=== PATIENT | female | born 1985 | race Caucasian/White ===

== ENCOUNTER 2016-06-28 16:05 | Observation (INO) | payer OTHER ==
[~2016-06-28] VITALS: Ht 154.9 cm; Wt 79.4 kg
[2016-06-28 16:13] VITALS: BP 143/97
[2016-06-28 16:45] VITALS: BP 134/94
[2016-06-28] MEDS ORDERED: BETAMETHASONE ACE/NA PHOS 6 MG/ML (CELESTONE SOLUSPAN) ONE (17:22)
[2016-06-28 17:25] LABS: ALANINE AMINOTRANSFERASE 33 U/L (0-55); ALBUMIN 3.3 G/DL (3.2-4.5); ANION GAP 11 MMOL/L (5-14); ASPARTATE AMINO TRANSFERASE 33 U/L (5-34); BILIRUBIN,TOTAL 0.5 MG/DL (0.1-1.0); BLOOD UREA NITROGEN 9 MG/DL (7-18); BUN/CREATININE RATIO 15; CALCIUM 8.9 MG/DL (8.5-10.1); CARBON DIOXIDE 18 MMOL/L (21-32); CHLORIDE 107 MMOL/L (98-107); CREATININE SERUM 0.59 MG/DL (0.60-1.30); GFR ESTIMATED > 60; GLUCOSE 77 MG/DL (70-105); LACTATE DEHYDROGENASE 122 U/L (125-220); POTASSIUM 3.9 MMOL/L (3.6-5.0); SODIUM 136 MMOL/L (135-145); TOTAL PROTEIN 6.1 G/DL (6.4-8.2); URIC ACID 5.2 MG/DL (2.6-7.2)
[2016-06-28] MEDS: BETAMETHASONE ACE/NA PHOS 6 MG/ML (CELESTONE SOLUSPAN) IM SCH (17:39)
[2016-06-28 17:45] VITALS: BP 131/85
[2016-06-28 17:55] LABS: BILIRUBIN,URINE NEGATIVE (NEGATIVE); KETONES,URINE 1+ (NEGATIVE); LEUKOCYTE ESTERASE ,URINE NEGATIVE (NEGATIVE); NITRITE,URINE NEGATIVE (NEGATIVE); PH,URINE 6.5 (5-9); PROTEIN,URINE 1+ (NEGATIVE); UROBILINOGEN,URINE NORMAL (NORMAL)
[2016-06-28 18:06] LABS: WBC,URINE RARE /HPF
[2016-06-28 18:14] VITALS: BP 131/85
--- NOTE | 2016-06-28 18:22 | Diagnostic Imaging Report ---
INDICATION: Hypertension, uterine fibroids. COMPARISON: None available. TECHNIQUE: Third trimester OB ultrasound was performed on June 28, 2016. FINDINGS: A single live intrauterine gestation is identified. The fetus is in a cephalic presentation. Amniotic fluid index is within normal limits at 17.3 cm with the largest single pocket measuring 5.4 cm. No evidence of placenta previa. heart tones are present at 127 beats per minute. The cervix measures 3.8 cm. No significant fluid undermining the gestational sac and placenta. Two rounded hypoechoic masses are identified within the anterior aspect of the uterus. The largest measures 5.8 x 3.5 x 5.2 cm, while the other measures 3.1 x 2.2 x 2.5 cm. These appear ovoid and mildly hypoechoic and are not hypervascular. biometrics are symmetric, consistent with an estimated gestational age of 32 weeks and 1 day. Therefore, there is an estimated due date based upon this examination of August 22, 2016. IMPRESSION: Single live intrauterine gestation in a cephalic presentation and estimated gestational age of 32 weeks and 1 day. Therefore, there is an estimated due date based upon this examination of August 22, 2016. Findings are consistent with clinical dating. A full anatomic survey was not performed on this examination. Two ovoid hypoechoic masses within the anterior aspect of the uterus, felt to relate to uterine fibroids. Focal contraction is felt less likely. Dictated by: Dictated on workstation # [id number]
[2016-06-28 19:55] VITALS: BP 135/94
[2016-06-29] VITALS (9 sets, daily range): BP systolic 125–150; BP diastolic 80–101
[2016-06-29] MEDS ORDERED: PNV11TAB5 PO (09:31)
[2016-06-29] MEDS ORDERED: Iron PO (09:31)
[2016-06-29] MEDS ORDERED: CALC600T12 PO (09:31)
--- NOTE | 2016-06-29 11:52 | Progress Note-Standard ---
Standard Progress Note Progress Notes/Assess & Plan Progress/Assessment & Plan This patient was admitted by my partners Dr. Bran and Dr. Chan yesterday from the office after having elevations in BP, and concerns for PreE. Today this morning the patient's BP is much improved. She denies contractions, vb, lof. +FM noted by the patient. She is due for a second dose of BMZ today, and is completing a 24 hr urine protien. Vital Sign - Last 24 Hours 06/28/16 06/28/16 06/28/16 06/28/16 16:13 16:45 17:45 18:14 Temp 98.5 Pulse 102 104 93 93 Resp 18 18 18 18 B/P 143/97 134/94 131/85 131/85 Pulse Ox 97 O2 Delivery Room Air Room Air Room Air 06/28/16 06/29/16 06/29/16 06/29/16 19:55 00:35 04:30 08:20 Temp 98.0 98.0 98.2 98.0 Pulse 101 100 106 135 Resp 18 18 18 14 B/P 135/94 125/81 125/80 136/94 Pulse Ox 95 96 100 O2 Delivery Room Air Room Air Room Air Intake and Output 06/28/16 06/28/16 06/29/16 15:00 23:00 07:00 Intake Total 1300 ml Output Total 1400 ml Balance -100 ml Laboratory Tests Test 06/28/16 16:10 06/28/16 16:58 Range/Units Urine Bacteria FEW H /HPF Urine Bilirubin NEGATIVE NEGATIVE Urine Casts NONE /LPF Urine Clarity SLIGHTLY CLOUDY Urine Color YELLOW Urine Crystals NONE /LPF Urine Culture Indicated NO Urine Glucose (UA) NEGATIVE NEGATIVE Urine Ketones 1+ H NEGATIVE Urine Leukocyte Esterase NEGATIVE NEGATIVE Urine Mucus NEGATIVE /LPF Urine Nitrite NEGATIVE NEGATIVE Urine Protein 1+ H NEGATIVE Urine RBC NONE /HPF Urine RBC (Auto) NEGATIVE NEGATIVE Urine Specific [place] 1.010 L 1.016-1.022 Urine Squamous Epithelial Cells 5-10 /HPF Urine Urobilinogen NORMAL NORMAL MG/DL Urine WBC RARE /HPF Urine pH 6.5 5-9 Alanine Aminotransferase (ALT/SGPT) 33 0-55 U/L Albumin 3.3 3.2-4.5 G/DL Alkaline Phosphatase 114 40-136 U/L Anion Gap 11 5-14 MMOL/L Aspartate Amino Transf (AST/SGOT) 33 5-34 U/L BUN/Creatinine Ratio 15 Blood Urea Nitrogen 9 7-18 MG/DL Calcium Level 8.9 8.5-10.1 MG/DL Carbon Dioxide Level 18 L 21-32 MMOL/L Chloride Level 107 98-107 MMOL/L Creatinine 0.59 L 0.60-1.30 MG/DL Estimat Glomerular Filtration Rate > 60 Glucose Level 77 70-105 MG/DL Lactate Dehydrogenase 122 L 125-220 U/L Potassium Level 3.9 3.6-5.0 MMOL/L Sodium Level 136 135-145 MMOL/L Total Bilirubin 0.5 0.1-1.0 MG/DL Total Protein 6.1 L 6.4-8.2 G/DL Uric Acid 5.2 2.6-7.2 MG/DL NST: reactive BL 140 moderate variability + accels no decels, Uterine irritability noted on TOCO. Diagnosis: GHTN- improved Uterine contractions- patient not aware of these P: Complete 24 hr urine today BMZ at 24 hrs DC later today if continues to have normal BP. ANDRE OLIVER DO Jun 29, 2016 11:52 am
[2016-06-29] MEDS ORDERED: NIFEdipine ER 60 MG (PROCARDIA XL) TAB PO ONE (12:42)
[2016-06-29] MEDS ORDERED: NIFEdipine ER 30 MG (PROCARDIA XL) TAB PO ONE (12:45)
[2016-06-29] MEDS ORDERED: BETAMETHASONE ACE/NA PHOS 6 MG/ML (CELESTONE SOLUSPAN) IM SCH (17:00)
[2016-06-29] MEDS ORDERED: NIFE30TA2 PO (17:58)
[2016-06-29] MEDS: BETAMETHASONE ACE/NA PHOS 6 MG/ML (CELESTONE SOLUSPAN) IM SCH (18:16)
--- OUTSIDE RECORDS SUMMARY | 2016-06-30 15:27 | XMS REPORT | Continuity of Care Document ---
Author Author [facility] Organization [facility] Address Unknown Phone Unavailable Care Team Providers Care Cylinder Inspector And Tester Name Role Phone NO, LOCAL PHYSICIAN PCP Unavailable Insurance Providers Payer Name Policy Number Subscriber Name Relationship UMR [id number] Celia Arnett 19 Self / Same As Patient Advance Directives Directive Response Recorded Date/Time Advance Directives No 06/28/16 5:00pm Health Care Power of Call Centre Supervisor No 06/28/16 5:00pm Organ Donor No 06/28/16 5:00pm Resuscitation Status Full Code 06/28/16 5:00pm Chief Complaint and Reason for Visit Chief Complaint ECLAMPSIA Reason for Visit Elevated blood pressure complicating in third trimester, antepartum Problems Active Problems Medical Problem Onset Date Status Elevated blood pressure complicating in third trimester, antepartum Unknown Acute Medications Current Home Medications Medication Dose Units Route Directions Days/Qty Instructions Start Date Dqu705/Fa/Omega3/Dha/Fish Oil 1 Each 2 Each Oral Daily 06/29/16 [Iron] 45 Mg Oral Twice A Day 06/29/16 Calcium Carbonate 600 Mg 600 Mg Oral Bedtime 06/29/16 Nifedipine 30 Mg 30 Mg Oral Daily 30 06/29/16 Social History Social History Problem Response Recorded Date/Time Recent Foreign Travel No 06/28/2016 5:00pm Recent Infectious Disease Exposure No 06/28/2016 5:00pm Smoking Status Never a Smoker 06/28/2016 4:30pm Query Response Start Date Stop Date Smoking Status Never a Smoker Hospital Discharge Instructions No hospital discharge instructions. Plan of Care Discharge Date 06/29/16 5:57pm Disposition IP-HIM TO CODE Instructions/Education Provided OB OUTPATIENT DISCHARGE Preeclampsia Forms Provided [facility]/OP Prescriptions See Medication Section Additional Instructions/Education follow up with as scheduled or next week. Functional Status No functional status results. Allergies, Adverse Reactions, Alerts No known allergies. Immunizations No immunization records. Vital Signs Acute Vital Signs Vital Response Date/Time Temperature (Fahrenheit) 99.0 degrees F (97.6 - 99.5) 06/29/2016 4:00pm Temperature (Calculated Celsius) 37.19117 degrees C (36.4 - 37.5) 06/29/2016 4:00pm Temperature Source Tympanic 06/29/2016 4:00pm Pulse Rate (adult) 110 bpm (60 - 90) 06/29/2016 6:00pm Respiratory Rate 14 bpm (12 - 24) 06/29/2016 4:00pm O2 Sat by Pulse Oximetry 97 % (88 - 100) 06/29/2016 4:00pm Blood Pressure 132/89 mm Hg 06/29/2016 6:00pm Blood Pressure Mean 103 mm Hg 06/29/2016 6:00pm Pain Numeric Pain Scale 0-No Pain 06/29/2016 4:00pm Pain Intensity 0 06/28/2016 6:14pm Height (Feet) 5 feet 06/28/2016 4:30pm Height (Inches) 1.00 inches 06/28/2016 4:30pm Height (Calculated Centimeters) 154.973343 cm 06/28/2016 4:30pm Weight (Pounds) 175 pounds 06/28/2016 4:30pm Weight (Ounces) 0.0 oz 06/28/2016 4:30pm Weight (Calculated Grams) 43959.67 gm 06/28/2016 4:30pm Weight (Calculated Kilograms) 79.002014 kilograms 06/28/2016 4:30pm Calculated BMI 33.1 06/28/2016 4:30pm Results Laboratory Results Test Name Result Units Flags Reference Collection Date/Time Result Date/ Time Comments Urine Color YELLOW 06/28/2016 4:10pm 06/28/2016 6:07pm Urine Clarity SLIGHTLY CLOUDY 06/28/2016 4:10pm 06/28/2016 6:07pm Urine pH 6.5 5-9 06/28/2016 4:10pm 06/28/2016 6:07pm Urine Specific [place] 1.010 * 1.016-1.022 06/28/2016 4:10pm 2016 6:07pm Urine Protein 1+ * NEGATIVE 06/28/2016 4:10pm 06/28/2016 6:07pm Urine Glucose (UA) NEGATIVE NEGATIVE 06/28/2016 4:10pm 06/28/2016 6: 07pm Urine RBC (Auto) NEGATIVE NEGATIVE 06/28/2016 4:10pm 06/28/2016 6: 07pm Urine Ketones 1+ * NEGATIVE 06/28/2016 4:10pm 06/28/2016 6:07pm Urine Nitrite NEGATIVE NEGATIVE 06/28/2016 4:10pm 06/28/2016 6:07pm Urine Bilirubin NEGATIVE NEGATIVE 06/28/2016 4:10pm 06/28/2016 6: 07pm Urine Urobilinogen NORMAL MG/DL NORMAL 06/28/2016 4:10pm 06/28/2016 6: 07pm Urine Leukocyte Esterase NEGATIVE NEGATIVE 06/28/2016 4:10pm 2016 6:07pm Urine RBC NONE /HPF 06/28/2016 4:10pm 06/28/2016 6:07pm Urine WBC RARE /HPF 06/28/2016 4:10pm 06/28/2016 6:07pm Urine Bacteria FEW /HPF * 06/28/2016 4:10pm 06/28/2016 6:07pm Urine Squamous Epithelial Cells 5-10 /HPF 06/28/2016 4:10pm 2016 6:07pm Urine Crystals NONE /LPF 06/28/2016 4:10pm 06/28/2016 6:07pm Urine Casts NONE /LPF 06/28/2016 4:10pm 06/28/2016 6:07pm Urine Mucus NEGATIVE /LPF 06/28/2016 4:10pm 06/28/2016 6:07pm Urine Culture Indicated NO 06/28/2016 4:10pm 06/28/2016 6:07pm Urine Total Volume 2800 ML 06/28/2016 4:10pm 06/29/2016 5:14pm Urine Total Protein mg/dL 9 MG/DL 6-12 06/28/2016 4:10pm 06/29/2016 5: 14pm Urine Total Protein 24 Hour 252 MG/24H H 0-149 06/28/2016 4:10pm 2016 5:14pm Urine Creatinine 35 MG/DL 30-125 06/28/2016 4:10pm 06/29/2016 5:14pm Urine Creatinine 24 Hour 980 MG/24H 800-1700 06/28/2016 4:10pm 2016 5:14pm Sodium Level 136 MMOL/L 135-145 06/28/2016 4:58pm 06/28/2016 5:39pm Potassium Level 3.9 MMOL/L 3.6-5.0 06/28/2016 4:58pm 06/28/2016 5:39pm Chloride Level 107 MMOL/L 98-107 06/28/2016 4:58pm 06/28/2016 5:39pm Carbon Dioxide Level 18 MMOL/L L 21-32 06/28/2016 4:58pm 06/28/2016 5: 39pm Anion Gap 11 MMOL/L 5-14 06/28/2016 4:58pm 06/28/2016 5:39pm Blood Urea Nitrogen 9 MG/DL 7-18 06/28/2016 4:58pm 06/28/2016 5:39pm Creatinine 0.59 MG/DL L 0.60-1.30 06/28/2016 4:58pm 06/28/2016 5:39pm BUN/Creatinine Ratio 15 06/28/2016 4:58pm 06/28/2016 5:39pm Estimat Glomerular Filtration Rate > 60 06/28/2016 4:58pm 2016 5:39pm GFR INTERPRETIVE DATA UNITS FOR ESTIMATED GFR (eGFR): mL/min/1.73 M2 REFERENCE RANGE FOR ESTIMATED GFR (eGFR) eGFR NORMAL eGFR >60 MODERATELY DECREASED eGFR 30-59 SEVERLY DECREASED eGFR 15-29 KIDNEY FAILURE <15 (OR DIALYSIS) Glucose Level 77 MG/DL 70-105 06/28/2016 4:58pm 06/28/2016 5:39pm Uric Acid 5.2 MG/DL 2.6-7.2 06/28/2016 4:58pm 06/28/2016 5:39pm Calcium Level 8.9 MG/DL 8.5-10.1 06/28/2016 4:58pm 06/28/2016 5:39pm Total Bilirubin 0.5 MG/DL 0.1-1.0 06/28/2016 4:58pm 06/28/2016 5:39pm Alkaline Phosphatase 114 U/L 40-136 06/28/2016 4:58pm 06/28/2016 5: 39pm Aspartate Amino Transf (AST/SGOT) 33 U/L 5-34 06/28/2016 4:58pm 2016 5:39pm Alanine Aminotransferase (ALT/SGPT) 33 U/L 0-55 06/28/2016 4:58pm 06/28 5:39pm Lactate Dehydrogenase 122 U/L L 125-220 06/28/2016 4:58pm 06/28/2016 5: 39pm Total Protein 6.1 G/DL L 6.4-8.2 06/28/2016 4:58pm 06/28/2016 5:39pm Albumin 3.3 G/DL 3.2-4.5 06/28/2016 4:58pm 06/28/2016 5:39pm Procedures No known history of procedures. Encounters Encounter Location Arrival/Admit Date Discharge/Depart Date Attending Provider Discharged Inpatient (obs) [facility] 06/28/16 4:05pm 5:57pm HUSSAIN CAAL DO Recent Diagnosis Elevated blood pressure complicating in third trimester, antepartum
--- NOTE | 2016-07-05 09:52 | Short Stay Summary ---
History of Present Illness History of Present Illness Reason for visit/HPI gestational hypertension proteinuria uterine fibroids Celia is currently 32 weeks . She had blood pressure of 107/113 and 1 + proteinuria today. She has had ho headache or blurred vision, in fact is feeling quite well. She has 2+ DTR Repeat BP 147/110. She was sent to women's services for BP monitoring and 24 urine collection. Due to the early gestation, we have discussed transfer to higher level of acuity if delivery is imminent. She also has a large anterior uterine fibroid so an US will be obtained for growth, size, position, fluid. She had last sono at 26 weeks and growth adequate and fibroid was 7x4x6 cm Date of Admission Jun 28, 2016 at 16:05 Date of Discharge Jun 29, 2016 at 17:57 Attending Physician Radha Caal DO Admitting Physician Opal,Local Physician Consult Allergies and Home Medications Allergies Coded Allergies: No Known Drug Allergies (Unverified , 06/28/16) Home Medications 45 MG PO BID (Reported) Calcium Carbonate 600 Mg Tablet 600 MG PO HS (Reported) Hydrocodone/Acetaminophen 1 Each Tablet #45 1-2 TAB PO Q4H PRN PRN MODERATE PAIN Prescribed by: RADHA CAAL on 07/12/16 1354 Ibuprofen 600 Mg Tablet #40 600 MG PO Q6H Prescribed by: RADHA CAAL on 07/12/16 1354 Nifedipine 30 Mg Tab.er.24 #30 30 MG PO DAILY Prescribed by: CELIA ZIMMERMAN on 06/29/16 1758 Gbd401/FA/Omega3/Dha/Fish Oil 1 Each Tab.chew 2 EACH PO DAILY (Reported) Past Tnfbhuz-Ahhgpe-Xfopsa Hx Patient Social History Marrital Status: Number of Children: 0 Number of living children: 0 Employed/Student: unemployed Alcohol Use: Denies Use Smoking Status: Never a Smoker Physical Abuse Screen: No Sexual Abuse: No Recent Foreign Travel: No Contact w/other who traveled: No Recent Infectious Disease Expo: No Immunizations Up To Date Date of Influenza Vaccine: Mar 28, 2016 Seasonal Allergies Seasonal Allergies: No Surgeries HX Surgeries: No Respiratory Hx Respiratory Disorders: No Cardiovascular Hx Cardiovascular Disorders: No Neurological Hx Neurological Disorders: No Reproductive System : Yes Hx : 1 Hx Para: 0 Hx Total # of Abortions (Spona: 0 Hx Reproductive Disorders: No Sexually Transmitted Disease: No HIV/AIDS: No Genitourinary Hx Genitourinary Disorders: No Gastrointestinal Hx Gastrointestinal Disorders: No Musculoskeletal Hx Musculoskeletal Disorders: No Endocrine Hx Endocrine Disorders: No HEENT HX ENT Disorders: No Cancer Hx Cancer: No Psychosocial Hx Psychiatric Problems: No Integumentary HX Skin/Integumentary Disorder: No Blood Transfusions Hx Blood Disorders: No Adverse Reaction to a Blood Tr: No Reviewed Nursing Assessment Reviewed/Agree w Nursing PMH: No Family Medical History Significant Family History: Diabetes Constitutional: no symptoms reported Respiratory: no symptoms reported Gastrointestinal: no symptoms reported Genitourinary: no symptoms reported : Yes All Other Systems Reviewed Negative Unless Noted: Yes (Negative excepted noted.) Physical Exam Vital Signs Vital Sign - Last 12Hours 06/29/16 00:35 Temp 98.0 Pulse 100 Resp 18 B/P 125/81 Pulse Ox 95 O2 Delivery Room Air Capillary Refill : General Appearance: WD/WN Cardiovascular: Other (1+ edema) Gastrointestinal: Normal Bowel Sounds Reflexes: 2+ Knee (R), 2+ Knee (L) Short Stay Diagnosis Discharge Diagnosis-Short Stay Admission Diagnosis: Preeclampsia uterine fibroid Final Discharge Diagnosis: Same Conclusion Labs 252 mg/24 hour of protein CMP wnl Conclusion/Plan Betamethasone course completed BPP reactive US shows vertex with adequate growth. EDC 08/22/16. Fibroid is actually 2 fibroids 5x5 and 3x3 cm in the anterior uterus. Procardia 30 mg XL started for hypertension and will be continued. she does have uterine irritability but not labor. Will be discharged and monitored at home. Due the early gestation, and improvement with blood pressures, delivery is not imminent. Scheduled in my office on Sunday. RADHA CAAL DO Jul 05, 2016 09:52
== END 2016-06-29 17:57 | disposition home or self-care (01) ==
LOC: LDRP 16:05 → WSo 16:26 → LDRP 16:26 → UNDOADMOB 16:27 → LDRP 16:30 → WSo 16:30 → UNDODISOB 06-29 18:30 → EDSTATUS 06-30 15:23
PROVIDERS: ADMIT Obstetrics & Gynecology; ATTEND Obstetrics & Gynecology
DX: O13.3 Gestational [pregnancy-induced] hypertension without significant proteinuria, third trimester (principal); O47.03 False labor before 37 completed weeks of gestation, third trimester; Z3A.32 32 weeks gestation of pregnancy
CPT/HCPCS: 36415; 76805; 80053; 81000; 82570; 83615; 84156; 84550; 96372; 99211; G0378

== ENCOUNTER 2016-07-10 16:09 | Inpatient (IN) | payer OTHER ==
[~2016-07-10] VITALS: Ht 154.9 cm; Wt 79.4 kg
[2016-07-10] VITALS (40 sets, daily range): BP systolic 129–168; BP diastolic 11–111
[~2016-07-10 16:09] MED LIST: CALC600T12 PO; Iron PO; NIFE30TA2 PO; PNV11TAB5 PO
--- OUTSIDE RECORDS SUMMARY | 2016-07-10 16:12 | XMS REPORT | Continuity of Care Document ---
Author Author [facility] Organization [facility] Address Unknown Phone Unavailable Care Team Providers Care Shuttle Truck Driver Name Role Phone NO, LOCAL PHYSICIAN PCP Unavailable Insurance Providers Payer Name Policy Number Subscriber Name Relationship UMR [id number] Celia Arnett 19 Self / Same As Patient Advance Directives Directive Response Recorded Date/Time Advance Directives No 06/28/16 5:00pm Health Care Power of Daycare Assistant No 06/28/16 5:00pm Organ Donor No 06/28/16 [...] Units Route Directions Days/Qty Instructions Start Date Dlr713/Fa/Omega3/Dha/Fish Oil 1 Each 2 Each Oral Daily [...] - 99.5) 06/29/2016 4:00pm Temperature (Calculated Celsius) 37.16198 degrees C (36.4 - 37.5) 06/29/2016 4:00pm [...] 1.00 inches 06/28/2016 4:30pm Height (Calculated Centimeters) 154.300386 cm 06/28/2016 4:30pm Weight (Pounds) 175 pounds 06/28/2016 4:30pm Weight (Ounces) 0.0 oz 06/28/2016 4:30pm Weight (Calculated Grams) 21345.67 gm 06/28/2016 4:30pm Weight (Calculated Kilograms) 79.746964 kilograms 06/28/2016 4:30pm Calculated BMI 33.1 06/28/2016 4:30pm Results Laboratory Results Test Name Result Units Flags Reference Collection Date/Time Result Date/ Time Comments Urine Color YELLOW 06/28/2016 4:10pm 06/28/2016 6:07pm Urine Clarity SLIGHTLY CLOUDY 06/28/2016 4:10pm 06/28/2016 6:07pm Urine pH 6.5 5-9 06/28/2016 4:10pm 06/28/2016 6:07pm Urine Specific [place] 1.010 * 1.016-1.022 06/28/2016 4:10pm 2016 6:07pm [...] Date Attending Provider Discharged Inpatient (obs) [facility] 06/28/16 4:05pm 5:57pm HUSSAIN CAAL DO Recent Diagnosis Elevated blood pressure complicating in third trimester, antepartum
[2016-07-10] MEDS ORDERED: LACTATED RINGERS 1,000 ML IV ONE (16:21)
[2016-07-10] MEDS ORDERED: TERBUTALINE INJ 1 MG/ML (BRETHINE) AMP SC PRN (16:30)
[2016-07-10] MEDS ORDERED: MISOPROSTOL 100 MCG (CYTOTEC) TAB PV NR (16:30)
[2016-07-10] MEDS ORDERED: MAGNESIUM 4 GM/100 ML IVPB 100 ML IV SCH (16:30)
[2016-07-10] MEDS ORDERED: CALCIUM GLUC. 10% 4.65 MEQ/10 ML VIAL IV PRN (16:30)
[2016-07-10] MEDS: D5 LR IV SOLUTION 1,000 ML IV SCH (17:04)
[2016-07-10] MEDS: MAGNESIUM SULFATE DRIP 500 ML IV SCH (17:05)
[2016-07-10 17:11] LABS: ALANINE AMINOTRANSFERASE 55 U/L (0-55); ALBUMIN 3.3 G/DL (3.2-4.5); ANION GAP 12 MMOL/L (5-14); ASPARTATE AMINO TRANSFERASE 47 U/L (5-34); BILIRUBIN,TOTAL 0.7 MG/DL (0.1-1.0); BLOOD UREA NITROGEN 11 MG/DL (7-18); BUN/CREATININE RATIO 15; CALCIUM 9.3 MG/DL (8.5-10.1); CARBON DIOXIDE 17 MMOL/L (21-32); CHLORIDE 107 MMOL/L (98-107); CREATININE SERUM 0.71 MG/DL (0.60-1.30); GFR ESTIMATED > 60; GLUCOSE 104 MG/DL (70-105); LACTATE DEHYDROGENASE 334 U/L (125-220); MAGNESIUM 1.7 MG/DL (1.8-2.4); POTASSIUM 4.3 MMOL/L (3.6-5.0); SODIUM 136 MMOL/L (135-145); TOTAL PROTEIN 6.4 G/DL (6.4-8.2); URIC ACID 5.8 MG/DL (2.6-7.2)
[2016-07-10] MEDS ORDERED: MISOPROSTOL 100 MCG (CYTOTEC) TAB PV SCH (20:00)
[2016-07-10 20:08] LABS: BASOPHILS % (AUTO) 0 % (0-10); EOSINOPHILS # (AUTO) 0.1 10^3/uL (0.0-0.3); EOSINOPHILS % (AUTO) 1 % (0-10); LYMPHOCYTES % (AUTO) 18 % (12-44); MEAN CORPUSCULAR HEMOGLOBIN 30 PG (25-34); MEAN CORPUSCULAR HGB CONC 33 G/DL (32-36); MEAN CORPUSCULAR VOLUME 91 FL (80-99); MEAN PLATELET VOLUME 11.1 FL (7.4-10.4); MONOCYTES # (AUTO) 0.6 X 10^3 (0.0-1.0); MONOCYTES % (AUTO) 6 % (0-12); NEUTROPHILS # (AUTO) 8.3 X 10^3 (1.8-7.8); NEUTROPHILS % (AUTO) 75 % (42-75); PLATELET COUNT 285 10^3/uL (130-400); RED BLOOD COUNT 4.15 10^6/uL (4.35-5.85); RED CELL DISTRIBUTION WIDTH 14.4 % (10.0-14.5)
[2016-07-10] MEDS: ZOLPIDEM 5 MG (AMBIEN) TAB PO SCH (21:00)
[2016-07-10] MEDS: MISOPROSTOL 100 MCG (CYTOTEC) TAB PO SCH (22:00)
[2016-07-10] MEDS ORDERED: LABETALOL HCL 20 MG/4 ML VIAL IV ONE (22:00)
[2016-07-11] VITALS (35 sets, daily range): BP systolic 128–161; BP diastolic 82–110
[2016-07-11] MEDS: MISOPROSTOL 100 MCG (CYTOTEC) TAB PO SCH ×4 (02:05→14:18)
[2016-07-11] MEDS: MAGNESIUM SULFATE DRIP 500 ML IV SCH ×3 (03:38→23:47)
[2016-07-11 06:12] LABS: BASOPHILS % (AUTO) 0 % (0-10); EOSINOPHILS % (AUTO) 0 % (0-10); LYMPHOCYTES # (AUTO) 1.8 X 10^3 (1.0-4.0); LYMPHOCYTES % (AUTO) 12 % (12-44); MEAN CORPUSCULAR HEMOGLOBIN 31 PG (25-34); MEAN CORPUSCULAR HGB CONC 34 G/DL (32-36); MEAN CORPUSCULAR VOLUME 91 FL (80-99); MEAN PLATELET VOLUME 10.8 FL (7.4-10.4); MONOCYTES # (AUTO) 0.8 X 10^3 (0.0-1.0); MONOCYTES % (AUTO) 5 % (0-12); NEUTROPHILS # (AUTO) 12.7 X 10^3 (1.8-7.8); NEUTROPHILS % (AUTO) 82 % (42-75); PLATELET COUNT 274 10^3/uL (130-400); RED BLOOD COUNT 4.02 10^6/uL (4.35-5.85); RED CELL DISTRIBUTION WIDTH 14.5 % (10.0-14.5); WHITE BLOOD COUNT 15.4 10^3/uL (4.3-11.0)
[2016-07-11] MEDS: D5 LR IV SOLUTION 1,000 ML IV SCH ×2 (06:12→18:59)
[2016-07-11 06:38] LABS: ALANINE AMINOTRANSFERASE 64 U/L (0-55); ALBUMIN 3.4 G/DL (3.2-4.5); ANION GAP 13 MMOL/L (5-14); ASPARTATE AMINO TRANSFERASE 61 U/L (5-34); BILIRUBIN,TOTAL 0.8 MG/DL (0.1-1.0); BLOOD UREA NITROGEN 9 MG/DL (7-18); BUN/CREATININE RATIO 14; CALCIUM 7.8 MG/DL (8.5-10.1); CARBON DIOXIDE 18 MMOL/L (21-32); CHLORIDE 102 MMOL/L (98-107); CREATININE SERUM 0.64 MG/DL (0.60-1.30); GFR ESTIMATED > 60; GLUCOSE 99 MG/DL (70-105); POTASSIUM 3.8 MMOL/L (3.6-5.0); SODIUM 133 MMOL/L (135-145); TOTAL PROTEIN 6.7 G/DL (6.4-8.2)
--- NOTE | 2016-07-11 07:58 | Progress Note-Standard ---
Standard Progress Note Progress Notes/Assess & Plan Progress/Assessment & Plan Misoprostel ripening starting yesterday. Received 4 doses of misoprostel. Blood pressures have been labile and received 1 dose of IV labetalol. Magnesium infusing due to severe preeclampsia/seizure prophylaxis. She has no headaches, blurred vision, etc. VS - Last 72 Hours, by Label 07/10/16 07/10/16 07/10/16 07/10/16 16:35 16:50 17:10 17:15 Pulse 96 96 103 18 Resp 20 20 20 20 B/P 148/98 148/98 134/80 O2 Delivery Room Air Room Air Room Air 07/10/16 07/10/16 07/10/16 07/10/16 17:20 17:30 17:35 17:45 Pulse 122 122 106 105 Resp 20 20 20 18 B/P 129/74 163/100 O2 Delivery Room Air Room Air 07/10/16 07/10/16 07/10/16 07/10/16 17:45 17:52 18:00 18:05 Pulse 108 105 96 96 Resp 20 20 20 20 B/P 158/106 146/97 147/83 O2 Delivery Room Air Room Air Room Air 07/10/16 07/10/16 07/10/16 07/10/16 18:20 18:30 18:35 18:59 Pulse 109 96 96 104 Resp 20 20 20 20 B/P 137/83 148/106 O2 Delivery Room Air Room Air 07/10/16 07/10/16 07/10/16 07/10/16 19:07 19:23 19:40 19:52 Temp 97.1 Pulse 115 105 94 114 B/P 150/93 137/89 144/80 157/87 O2 Delivery Room Air Room Air Room Air Room Air 07/10/16 07/10/16 07/10/16 07/10/16 20:00 20:07 20:22 20:37 Pulse 114 106 106 105 Resp 18 B/P 153/92 143/89 146/91 O2 Delivery Room Air Room Air Room Air 07/10/16 07/10/16 07/10/16 07/10/16 20:52 21:00 21:07 21:09 Temp 96.8 Pulse 99 99 106 106 Resp 18 B/P 133/69 168/11 159/95 O2 Delivery Room Air Room Air Room Air 07/10/16 07/10/16 07/10/16 07/10/16 21:23 21:28 21:38 21:52 Temp 96.9 Pulse 116 102 106 113 B/P 166/111 159/102 141/100 145/100 O2 Delivery Room Air Room Air Room Air Room Air 07/10/16 07/10/16 07/10/16 07/10/16 22:00 22:07 22:23 22:37 Pulse 113 97 90 92 Resp 18 B/P 135/81 135/101 141/90 O2 Delivery Room Air Room Air Room Air 07/10/16 07/10/16 07/10/16 07/10/16 22:53 23:00 23:07 23:22 Temp 97.3 Pulse 83 83 89 86 Resp 18 B/P 136/95 136/94 144/96 O2 Delivery Room Air Room Air Room Air 07/10/16 07/11/16 07/11/16 07/11/16 23:36 00:00 00:00 01:00 Temp 96.9 Pulse 90 91 91 96 Resp 16 16 B/P 141/99 139/98 O2 Delivery Room Air Room Air 07/11/16 07/11/16 07/11/16 07/11/16 01:00 02:00 02:00 03:00 Temp 96.7 96.9 Pulse 96 95 95 98 Resp 18 16 B/P 135/93 140/95 O2 Delivery Room Air Room Air 07/11/16 07/11/16 07/11/16 07/11/16 03:00 04:00 04:00 05:00 Temp 96.7 96.7 Pulse 98 100 100 97 Resp 18 18 B/P 132/90 129/89 O2 Delivery Room Air Room Air 07/11/16 07/11/16 07/11/16 07/11/16 05:00 06:00 06:00 07:00 Temp 96.8 97.3 97.4 Pulse 97 90 90 100 Resp 18 B/P 137/86 134/93 140/98 O2 Delivery Room Air Room Air Room Air 07/11/16 07:00 Pulse 100 Resp 18 Laboratory Tests Test 07/10/16 16:35 07/11/16 05:52 Range/Units Alanine Aminotransferase (ALT/SGPT) 55 64 H 0-55 U/L Albumin 3.3 3.4 3.2-4.5 G/DL Alkaline Phosphatase 148 H 160 H 40-136 U/L Anion Gap 12 13 5-14 MMOL/L Aspartate Amino Transf (AST/SGOT) 47 H 61 H 5-34 U/L BUN/Creatinine Ratio 15 14 Basophils # (Auto) 0.0 0.0 0.0-0.1 10^3/uL Basophils (%) (Auto) 0 0 0-10 % Blood Urea Nitrogen 11 9 7-18 MG/DL Calcium Level 9.3 7.8 L 8.5-10.1 MG/DL Carbon Dioxide Level 17 L 18 L 21-32 MMOL/L Chloride Level 107 102 98-107 MMOL/L Creatinine 0.71 0.64 0.60-1.30 MG/DL Eosinophils # (Auto) 0.1 0.0 0.0-0.3 10^3/uL Eosinophils (%) (Auto) 1 0 0-10 % Estimat Glomerular Filtration Rate > 60 > 60 Glucose Level 104 99 70-105 MG/DL Hematocrit 38 37 35-52 % Hemoglobin 12.6 12.4 11.5-16.0 G/DL Lactate Dehydrogenase 334 H 125-220 U/L Lymphocytes # (Auto) 2.0 1.8 1.0-4.0 X 10^3 Lymphocytes (%) (Auto) 18 12 12-44 % Magnesium Level 1.7 L 1.8-2.4 MG/DL Mean Corpuscular Hemoglobin 30 31 25-34 PG Mean Corpuscular Hemoglobin Concent 33 34 32-36 G/DL Mean Corpuscular Volume 91 91 80-99 FL Mean Platelet Volume 11.1 H 10.8 H 7.4-10.4 FL Monocytes # (Auto) 0.6 0.8 0.0-1.0 X 10^3 Monocytes (%) (Auto) 6 5 0-12 % Neutrophils # (Auto) 8.3 H 12.7 H 1.8-7.8 X 10^3 Neutrophils (%) (Auto) 75 82 H 42-75 % Platelet Count 285 274 130-400 10^3/uL Potassium Level 4.3 3.8 3.6-5.0 MMOL/L Red Blood Count 4.15 L 4.02 L 4.35-5.85 10^6/uL Red Cell Distribution Width 14.4 14.5 10.0-14.5 % Sodium Level 136 133 L 135-145 MMOL/L Total Bilirubin 0.7 0.8 0.1-1.0 MG/DL Total Protein 6.4 6.7 6.4-8.2 G/DL Uric Acid 5.8 2.6-7.2 MG/DL White Blood Count 11.0 15.4 H 4.3-11.0 10^3/uL Irritability of uterus. she is comfortable FHT 140s with good LTV, class I. . 1, ant, soft, 50% efface. Old bloody show Will plan 10 am misoprostel and then recheck this afternoon to see if plan can be changed. Will start amp in active labor or if GBS comes back + (tomorrow if she is still laboring). continue Mg for severe preeclampsia with procardia and labetalol for BP. Repeat labs this evening and tomorrow. Assessment: 1. Severe preeclampsia 2. 34 1/7 weeks, s/p betamethasone at 33 weeks 3. GBS unknown, culture pending 4. Large anterior uterine fibroid. HUSSAIN CAAL DO Jul 11, 2016 07:58
[2016-07-11] MEDS ORDERED: NIFEdipine ER 30 MG (PROCARDIA XL) TAB PO SCH (09:00)
[2016-07-11] MEDS: NIFEdipine ER 30 MG (PROCARDIA XL) TAB PO SCH (10:00)
--- NOTE | 2016-07-11 18:36 | Progress Note-Standard ---
Standard Progress Note Progress Notes/Assess & Plan Progress/Assessment & Plan Misoprostol for 24 hours. She has made little change in her cervix. Blood pressures are labile but have not required treatment. SVE 1/50% The blood in the tubing is kirby red and is likely due to positioning. The vulvar swelling from the catheter is improved with change of the catheter. Will stop misoprostol and do Cervidil overnight. She wants to continue induction trial at this time. Will reevaluate in the am. GBS negative Laboratory Tests Test 07/11/16 05:52 Range/Units Alanine Aminotransferase (ALT/SGPT) 64 H 0-55 U/L Albumin 3.4 3.2-4.5 G/DL Alkaline Phosphatase 160 H 40-136 U/L Anion Gap 13 5-14 MMOL/L Aspartate Amino Transf (AST/SGOT) 61 H 5-34 U/L BUN/Creatinine Ratio 14 Basophils # (Auto) 0.0 0.0-0.1 10^3/uL Basophils (%) (Auto) 0 0-10 % Blood Urea Nitrogen 9 7-18 MG/DL Calcium Level 7.8 L 8.5-10.1 MG/DL Carbon Dioxide Level 18 L 21-32 MMOL/L Chloride Level 102 98-107 MMOL/L Creatinine 0.64 0.60-1.30 MG/DL Eosinophils # (Auto) 0.0 0.0-0.3 10^3/uL Eosinophils (%) (Auto) 0 0-10 % Estimat Glomerular Filtration Rate > 60 Glucose Level 99 70-105 MG/DL Hematocrit 37 35-52 % Hemoglobin 12.4 11.5-16.0 G/DL Lymphocytes # (Auto) 1.8 1.0-4.0 X 10^3 Lymphocytes (%) (Auto) 12 12-44 % Mean Corpuscular Hemoglobin 31 25-34 PG Mean Corpuscular Hemoglobin Concent 34 32-36 G/DL Mean Corpuscular Volume 91 80-99 FL Mean Platelet Volume 10.8 H 7.4-10.4 FL Monocytes # (Auto) 0.8 0.0-1.0 X 10^3 Monocytes (%) (Auto) 5 0-12 % Neutrophils # (Auto) 12.7 H 1.8-7.8 X 10^3 Neutrophils (%) (Auto) 82 H 42-75 % Platelet Count 274 130-400 10^3/uL Potassium Level 3.8 3.6-5.0 MMOL/L Red Blood Count 4.02 L 4.35-5.85 10^6/uL Red Cell Distribution Width 14.5 10.0-14.5 % Sodium Level 133 L 135-145 MMOL/L Total Bilirubin 0.8 0.1-1.0 MG/DL Total Protein 6.7 6.4-8.2 G/DL White Blood Count 15.4 H 4.3-11.0 10^3/uL Vital Signs 07/11/16 17:30 Temp 97.2 Pulse 103 Resp 20 B/P 137/90 Pulse Ox 100 O2 Delivery Non Rebreather O2 Flow Rate 10.00 HUSSAIN CAAL DO Jul 11, 2016 18:36
[2016-07-11] MEDS ORDERED: DINOPROSTONE 10 MG (CERVIDIL) INSERT PV ONE (18:45)
[2016-07-11] MEDS: ZOLPIDEM 5 MG (AMBIEN) TAB PO SCH (22:06)
[2016-07-12] VITALS (24 sets, daily range): BP systolic 124–158; BP diastolic 80–113
[2016-07-12 06:12] LABS: BASOPHILS % (AUTO) 0 % (0-10); EOSINOPHILS % (AUTO) 0 % (0-10); LYMPHOCYTES # (AUTO) 1.4 X 10^3 (1.0-4.0); LYMPHOCYTES % (AUTO) 11 % (12-44); MEAN CORPUSCULAR HEMOGLOBIN 31 PG (25-34); MEAN CORPUSCULAR HGB CONC 34 G/DL (32-36); MEAN CORPUSCULAR VOLUME 91 FL (80-99); MEAN PLATELET VOLUME 10.7 FL (7.4-10.4); MONOCYTES # (AUTO) 0.6 X 10^3 (0.0-1.0); MONOCYTES % (AUTO) 4 % (0-12); NEUTROPHILS # (AUTO) 10.9 X 10^3 (1.8-7.8); NEUTROPHILS % (AUTO) 84 % (42-75); PLATELET COUNT 254 10^3/uL (130-400); RED BLOOD COUNT 4.05 10^6/uL (4.35-5.85); RED CELL DISTRIBUTION WIDTH 14.6 % (10.0-14.5)
[2016-07-12 06:35] LABS: ALANINE AMINOTRANSFERASE 78 U/L (0-55); ANION GAP 9 MMOL/L (5-14); ASPARTATE AMINO TRANSFERASE 76 U/L (5-34); BILIRUBIN,TOTAL 0.7 MG/DL (0.1-1.0); BLOOD UREA NITROGEN 6 MG/DL (7-18); BUN/CREATININE RATIO 10; CALCIUM 6.8 MG/DL (8.5-10.1); CARBON DIOXIDE 20 MMOL/L (21-32); CHLORIDE 106 MMOL/L (98-107); CREATININE SERUM 0.61 MG/DL (0.60-1.30); GFR ESTIMATED > 60; GLUCOSE 116 MG/DL (70-105); LACTATE DEHYDROGENASE 198 U/L (125-220); SODIUM 135 MMOL/L (135-145); TOTAL PROTEIN 5.8 G/DL (6.4-8.2)
[2016-07-12] MEDS: D5 LR IV SOLUTION 1,000 ML IV SCH ×2 (07:49→18:28)
[2016-07-12] MEDS: NIFEdipine ER 30 MG (PROCARDIA XL) TAB PO SCH (08:46)
[2016-07-12] MEDS: MAGNESIUM SULFATE DRIP 500 ML IV SCH ×2 (08:46→19:02)
--- NOTE | 2016-07-12 11:33 | Progress Note-Standard ---
Standard Progress Note Progress Notes/Assess & Plan Progress/Assessment & Plan late entry from 0800 07/12/16 Patient had cervical removed at 0700. She feels lousy. Mag level 6.4 ( therapeutic). Baby flat due to mag but no decelerations. Cervix has not changed. Cervix still very anterior and difficult to assess. 1 cm and 50% with old bloody show. Blood pressures have not required extra antihypertensives. due for Procardia at 0900. Urine has cleared and urine out put excellent. At this point we could continue induction for another day. However, I suspect the uterine fibroids are causing dystocia. Vital Signs 07/12/16 10:00 Pulse 106 Resp 18 B/P 124/83 Pulse Ox 98 O2 Delivery Non Rebreather O2 Flow Rate 10.00 Laboratory Tests Test 07/12/16 06:01 Range/Units Alanine Aminotransferase (ALT/SGPT) 78 H 0-55 U/L Albumin 3.0 L 3.2-4.5 G/DL Alkaline Phosphatase 157 H 40-136 U/L Anion Gap 9 5-14 MMOL/L Aspartate Amino Transf (AST/SGOT) 76 H 5-34 U/L BUN/Creatinine Ratio 10 Basophils # (Auto) 0.0 0.0-0.1 10^3/uL Basophils (%) (Auto) 0 0-10 % Blood Urea Nitrogen 6 L 7-18 MG/DL Calcium Level 6.8 L 8.5-10.1 MG/DL Carbon Dioxide Level 20 L 21-32 MMOL/L Chloride Level 106 98-107 MMOL/L Creatinine 0.61 0.60-1.30 MG/DL Eosinophils # (Auto) 0.0 0.0-0.3 10^3/uL Eosinophils (%) (Auto) 0 0-10 % Estimat Glomerular Filtration Rate > 60 Glucose Level 116 H 70-105 MG/DL Hematocrit 37 35-52 % Hemoglobin 12.5 11.5-16.0 G/DL Lactate Dehydrogenase 198 125-220 U/L Lymphocytes # (Auto) 1.4 1.0-4.0 X 10^3 Lymphocytes (%) (Auto) 11 L 12-44 % Magnesium Level 6.4 *H 1.8-2.4 MG/DL Mean Corpuscular Hemoglobin 31 25-34 PG Mean Corpuscular Hemoglobin Concent 34 32-36 G/DL Mean Corpuscular Volume 91 80-99 FL Mean Platelet Volume 10.7 H 7.4-10.4 FL Monocytes # (Auto) 0.6 0.0-1.0 X 10^3 Monocytes (%) (Auto) 4 0-12 % Neutrophils # (Auto) 10.9 H 1.8-7.8 X 10^3 Neutrophils (%) (Auto) 84 H 42-75 % Platelet Count 254 130-400 10^3/uL Potassium Level 4.0 3.6-5.0 MMOL/L Red Blood Count 4.05 L 4.35-5.85 10^6/uL Red Cell Distribution Width 14.6 H 10.0-14.5 % Sodium Level 135 135-145 MMOL/L Total Bilirubin 0.7 0.1-1.0 MG/DL Total Protein 5.8 L 6.4-8.2 G/DL White Blood Count 13.0 H 4.3-11.0 10^3/uL 1100 addendum Earlier this am discussed with patient and her regarding continuing the induction versus scheduling section. Patient would like to wait and confer with her mother. Her mother has now arrived and they agree on section at this time. Will do this under spinal. Needs a low bolus. Preop antibiotics 9ancef). Continue Magnesium before and after section. Risks, bleeding infection, injury to bowel bladder and ureter. She is typed and crossed x 2 so will have blood in OR. Assessment: severe preeclampsia failed induction, failure to dilate lower uterine segment fibroids causing labor dystocia HUSSAIN CAAL DO Jul 12, 2016 11:33
[2016-07-12] MEDS ORDERED: FAMOTIDINE 20MG/2ML IV (PEPCID) IV ONE (11:45)
[2016-07-12] MEDS ORDERED: CITRIC ACID/SOB CIT (BICITRA) 30 ML UDC PO NR (11:45)
[2016-07-12] MEDS ORDERED: ceFAZolin 2 GM/50 ML NS 50 ML IV NR (11:45)
[2016-07-12] MEDS ORDERED: METOCLOPRAMIDE INJ 10 MG/2 ML (REGLAN) IV ONE (11:45)
[2016-07-12] MEDS ORDERED: METOCLOPRAMIDE INJ 10 MG/2 ML (REGLAN) IV NR (11:45)
[2016-07-12] MEDS ORDERED: FAMOTIDINE 20MG/2ML IV (PEPCID) IV NR (11:45)
[2016-07-12] MEDS ORDERED: CITRIC ACID/SOB CIT (BICITRA) 30 ML UDC PO ONE (11:45)
[2016-07-12] MEDS ORDERED: OXYTOCIN/NORMAL SALINE 1,000 ML IV ONE (12:16)
[2016-07-12] MEDS ORDERED: fentaNYL INJECTION 100 MCG/2 ML AMP ONE (12:17)
[2016-07-12] MEDS ORDERED: LACTATED RINGERS 1,000 ML IV ONE (13:11)
[2016-07-12] MEDS ORDERED: PHENYLEPHRINE 100 MCG/ML 10 ML (ANESTHESIA) SYR ONE (13:20)
[2016-07-12] MEDS ORDERED: OXYTOCIN/NORMAL SALINE 500 ML IV SCH (13:40)
[2016-07-12] MEDS ORDERED: TETANUS,DIPTH,PERTUSS P/F (BOOSTRIX) 0.5 ML VIAL IM SCH (13:45)
[2016-07-12] MEDS ORDERED: MEASLES,MUMPS,RUBELLA 1 EA INJ SC SCH (13:45)
--- NOTE | 2016-07-12 13:53 | Cesarean Section Operative ---
Procedure Procedure Note Pre-operative Diagnosis: Celia López is a 30 /Para 1 /0 , Gestational Age34 2/7 weeks with severe preeclampsia, failed induction, failure to progress, uterine fibroids Post-operative Diagnosis: same Procedure: Primary low transverse section Physician: HUSSAIN CAAL Estimated blood loss: 800 mL Disposition: [stable. Continue magnesium sulfate 12-24 hours Findings: Viable male infant, Apgars 6/8, weight 5 lbs, intact placenta, 3vc, normal appearing uterus, tubes, and ovaries. Indications:Celia López is a 30 /Para 1 /0 ,Gestational Age34 2/7 weeks with severe preeclampsia, failed induction, failure to progress, uterine fibroids Procedure Details: The patient was seen in pre-op and the procedure was discussed with the patient in full, including the risks, benefits, and alternatives. All questions were answered. The patient was taken to the operating room and a time out was performed, verifying patient and procedure. After spinal anesthesia was placed by our anesthesia colleagues, the patient was placed in the dorsal supine with leftward tilt for uterine displacement.~ Her abdomen was then prepped and draped in the typical sterile fashion. A Pfannenstiel skin incision was made using a scalpel and carried down through the underlying fascia. The fascia was incised in the midline and tented up using Luann clamps. On both the inferior and superior fascia side the rectus muscle was dissected off bluntly and sharply using Villanueva scissors. The peritoneum was identified and entered bluntly in the midline. This was then stretched laterally using manual strength. After entering the abdominal cavity and confirming lack of intraperitoneal adhesions, a large Laci retractor was placed and the lower uterine segment was visualized. A scalpel was utilized to make a low transverse uterine incision. Amniotomy was performed with return of clear fluid. The 's head was grasped and brought to the level of the incision. Fundal pressure was applied and infant was delivered without difficulty. the baby cried spontaneously. Mouth and nares were suctioned with bulb suction. After the umbilical cord was clamped and cut, the infant was handed off to the pediatric staff. A sample of cord blood was then obtained. Cord gas was sent (7.24) The placenta was delivered intact via uterine massage. The uterus was cleared of all clots and debris. There was a large anterior fibroid (6-7 cm) and multiple tiny ones also anterior. The uterine incision was closed using 0 Vicryl in a running locked fashion. A second imbricated layer was placed using 0 Vicryl in a running fashion as well. Again the hysterotomy site was examined and hemostasis was observed. The bilateral tubes and ovaries appeared normal. The abdominal gutters were cleared of all clots and debris. A final check of the uterine incision showed it to be hemostatic. Intercede was placed. The peritoneum was closed using 3-0 Vicryl in a running fashion. The muscles were brought back together in the midline with a single figure of 8 stitch of 3-0 Vicryl. The fascia was closed with 0 Vicryl in a running fashion. The subcutaneous space was hemostatic, and irrigated. The subcutaneous space was closed with 3-0 Vicryl in several single interrupted stitches. The skin was then closed using 4-0 Monocryl in a running subcuticular fashion. The skin edges were reapproximated together and were hemostatic. A pressure dressing was applied. All sponge, lap and needle counts were correct at the end of the procedure per nursing. Vitals - Labs Vital Signs - I&O Vital Signs Date Time Temp Pulse Resp B/P Pulse Ox O2 Delivery O2 Flow Rate FiO2 07/12/16 12:45 108 18 98 Room Air 07/12/16 12:35 111 18 140/97 98 07/12/16 12:25 96.1 104 18 142/102 98 Room Air 07/12/16 11:00 113 18 97 Non Rebreather 10.00 07/12/16 10:00 106 18 124/83 98 Non Rebreather 10.00 07/12/16 09:00 106 18 131/80 97 Non Rebreather 10.00 07/12/16 08:00 96 18 139/87 100 Non Rebreather 10.00 07/12/16 07:00 96.5 107 18 132/94 100 Non Rebreather 10.00 07/12/16 07:00 107 18 07/12/16 06:00 101 18 07/12/16 06:00 101 18 137/91 100 Non Rebreather 10.00 07/12/16 05:00 99 18 07/12/16 05:00 99 18 135/86 100 Non Rebreather 10.00 07/12/16 04:00 99 18 07/12/16 04:00 99 18 135/86 99 Non Rebreather 10.00 07/12/16 03:00 109 18 07/12/16 03:00 109 18 142/101 100 Non Rebreather 10.00 07/12/16 02:00 100 18 07/12/16 02:00 100 18 136/88 100 Non Rebreather 15.00 07/12/16 00:00 97.2 112 18 137/97 100 Non Rebreather 15.00 07/11/16 23:00 102 18 142/97 100 Non Rebreather 15.00 07/11/16 22:00 104 18 141/98 100 Non Rebreather 15.00 07/11/16 21:00 108 18 136/89 100 Non Rebreather 15.00 07/11/16 20:00 97.7 103 18 131/88 100 Non Rebreather 15.00 07/11/16 20:00 102 18 07/11/16 18:59 118 20 138/82 100 Non Rebreather 10.00 07/11/16 18:18 117 20 144/97 100 Non Rebreather 10.00 07/11/16 17:30 97.2 103 20 137/90 100 Non Rebreather 10.00 07/11/16 16:57 Non Rebreather 10.00 07/11/16 16:30 101 20 156/105 Room Air 07/11/16 16:10 106 20 07/11/16 16:00 101 20 143/108 Room Air 07/11/16 15:30 104 18 133/95 07/11/16 15:17 96.5 106 20 137/90 Room Air 07/11/16 15:00 96 20 137/90 Room Air 07/11/16 14:00 100 18 157/110 Room Air I & O 07/12/16 07:00 Intake Total 2900 ml Output Total 3865 ml Balance -965 ml Labs Laboratory Tests 07/12/16 06:01: Alanine Aminotransferase (ALT/SGPT) 78H, Albumin 3.0L, Alkaline Phosphatase 157H , Anion Gap 9, Aspartate Amino Transf (AST/SGOT) 76H, BUN/Creatinine Ratio 10, Basophils # (Auto) 0.0, Basophils (%) (Auto) 0, Blood Urea Nitrogen 6L, Calcium Level 6.8L, Carbon Dioxide Level 20L, Chloride Level 106, Creatinine 0.61, Eosinophils # (Auto) 0.0, Eosinophils (%) (Auto) 0, Estimat Glomerular Filtration Rate > 60, Glucose Level 116H, Hematocrit 37, Hemoglobin 12.5, Lactate Dehydrogenase 198, Lymphocytes # (Auto) 1.4, Lymphocytes (%) (Auto) 11L , Magnesium Level 6.4*H, Mean Corpuscular Hemoglobin 31, Mean Corpuscular Hemoglobin Concent 34, Mean Corpuscular Volume 91, Mean Platelet Volume 10.7H, Monocytes # (Auto) 0.6, Monocytes (%) (Auto) 4, Neutrophils # (Auto) 10.9H, Neutrophils (%) (Auto) 84H, Platelet Count 254, Potassium Level 4.0, Red Blood Count 4.05L, Red Cell Distribution Width 14.6H, Sodium Level 135, Total Bilirubin 0.7, Total Protein 5.8L, White Blood Count 13.0H Microbiology 07/10/16 Group B Streptococcus Culture - Preliminary, Resulted No Group B Strep HUSSAIN CAAL DO Jul 12, 2016 13:53
[2016-07-12] MEDS ORDERED: HYDR-3812 PO (13:54)
[2016-07-12] MEDS ORDERED: IBUP-1773 PO (13:54)
--- NOTE | 2016-07-12 13:56 | Discharge Inst-Women's Service ---
Discharge Inst-Women's Serv Depart Medication/Instructions New, Converted or Re-Newed RX: RX on Chart Final Diagnosis severe preeclampsia uterine fibroids failure to progress primary section Consults/Follow Up Additional Follow Up: Yes (1 week and 6 weeks) Activity Activity: Activity as Tolerated Driving Instructions: No Driving for 1 Week NO SMOKING: NO SMOKING Nothing Inside Vagina: No Douching, No Wister, No Tampons Diet Discharge Diet: No Restrictions Symptoms to Report to : Bleeding Excessive, Pain Increased, Fever Over 101 Degrees F, Vaginal Bleeding Increase, Cramps in Feet or Legs, Vaginal Discharge Foul, Dizziness/Fainting For Any Problems or Questions: Contact Your Physician Skin/Wound Care Infection Signs and Symptoms: Increased Redness, Foul Odor of Wound, Increased Drainage, Skin Itchy or Has a Rash, Increased Swelling, Temperature Above 101 F Operative Area Clean and Dry: Do Not Remove Bandage, Keep Incision Clean/Dry, You May Remove Bandage Stitches/Gregorio/Dermabond: Dermabond Bathing Instructions: HUSSAIN Smith DO Jul 12, 2016 13:56
[2016-07-12] MEDS: IBUPROFEN 600 MG (MOTRIN) TAB PO SCH (15:14)
[2016-07-12] MEDS: KETOROLAC 30 MG/ML VIAL IVP SCH ×2 (15:14→22:08)
[2016-07-12] MEDS: CATHETER FLUSH 10 ML SYR IV SCH (15:14)
[2016-07-12] MEDS: HYDROmorphone (DILAUDID) 2 MG/ML VIAL IVP PRN ×2 (15:24→18:00)
[2016-07-12] MEDS ORDERED: LABETALOL HCL 20 MG/4 ML VIAL IV ONE (16:15)
[2016-07-12] MEDS: DOCUSATE SODIUM 100 MG (COLACE) CAP PO SCH (22:08)
[2016-07-12] MEDS: HYDROcodone/APAP 5 MG/325 MG (LORTAB) TAB PO PRN (23:01)
[2016-07-13] VITALS (12 sets, daily range): BP systolic 132–157; BP diastolic 90–110
[2016-07-13] MEDS: KETOROLAC 30 MG/ML VIAL IVP SCH ×2 (03:45→08:46)
[2016-07-13] MEDS: MAGNESIUM SULFATE DRIP 500 ML IV SCH (05:10)
[2016-07-13 06:18] LABS: BASOPHILS % (AUTO) 0 % (0-10); EOSINOPHILS # (AUTO) 0.1 10^3/uL (0.0-0.3); EOSINOPHILS % (AUTO) 1 % (0-10); LYMPHOCYTES # (AUTO) 2.1 X 10^3 (1.0-4.0); LYMPHOCYTES % (AUTO) 18 % (12-44); MEAN CORPUSCULAR HEMOGLOBIN 31 PG (25-34); MEAN CORPUSCULAR HGB CONC 33 G/DL (32-36); MEAN CORPUSCULAR VOLUME 91 FL (80-99); MEAN PLATELET VOLUME 10.5 FL (7.4-10.4); MONOCYTES # (AUTO) 0.7 X 10^3 (0.0-1.0); MONOCYTES % (AUTO) 6 % (0-12); NEUTROPHILS # (AUTO) 8.8 X 10^3 (1.8-7.8); NEUTROPHILS % (AUTO) 75 % (42-75); PLATELET COUNT 228 10^3/uL (130-400); RED BLOOD COUNT 3.14 10^6/uL (4.35-5.85); RED CELL DISTRIBUTION WIDTH 14.6 % (10.0-14.5); WHITE BLOOD COUNT 11.7 10^3/uL (4.3-11.0)
[2016-07-13 06:47] LABS: ALANINE AMINOTRANSFERASE 61 U/L (0-55); ALBUMIN 2.3 G/DL (3.2-4.5); ANION GAP 8 MMOL/L (5-14); ASPARTATE AMINO TRANSFERASE 52 U/L (5-34); BILIRUBIN,TOTAL 0.5 MG/DL (0.1-1.0); BLOOD UREA NITROGEN 8 MG/DL (7-18); BUN/CREATININE RATIO 13; CARBON DIOXIDE 19 MMOL/L (21-32); CHLORIDE 103 MMOL/L (98-107); CREATININE SERUM 0.61 MG/DL (0.60-1.30); GFR ESTIMATED > 60; GLUCOSE 92 MG/DL (70-105); SODIUM 130 MMOL/L (135-145); TOTAL PROTEIN 4.6 G/DL (6.4-8.2)
[2016-07-13 06:56] LABS: CALCIUM 5.8 MG/DL (8.5-10.1)
[2016-07-13] MEDS: HYDROcodone/APAP 5 MG/325 MG (LORTAB) TAB PO PRN ×3 (07:07→20:37)
[2016-07-13] MEDS ORDERED: CALCIUM GLUCONATE 10% INJ 4.65 MEQ in NS (IVPB) 50 ML IV NR (07:30)
[2016-07-13] MEDS: DOCUSATE SODIUM 100 MG (COLACE) CAP PO SCH ×2 (08:46→20:37)
[2016-07-13] MEDS: CATHETER FLUSH 10 ML SYR IV SCH ×2 (08:46→20:38)
--- NOTE | 2016-07-13 08:54 | Anesthesia-Regional Post-Op ---
Regional Patient Condition Mental Status: Alert, Oriented x3 Circulation: Same as Pre-Op Headache: Absent Sensation: Full Recovery Motor Block: Absent Post Op Complications Complications None Follow Up Care/Instructions Patient Instructions None needed. Anesthesia/Patient Condition Patient is doing well, no complaints, stable vital signs, no apparent adverse anesthesia problems. No complications reported per nursing. OTILIA SORENSON CRNA Jul 13, 2016 08:54
--- NOTE | 2016-07-13 09:22 | Progress Note-Standard ---
Standard Progress Note Progress Notes/Assess & Plan Progress/Assessment & Plan Patient doing well POD 1 PLTCS. She reports no head aches, cp, sob, changes in vision. Magnesium was left running overnight, and BP remained relatively well controlled. VS - Last 72 Hours, by Label 07/10/16 07/10/16 07/10/16 07/10/16 16:35 16:50 17:10 17:15 Pulse 96 96 103 18 Resp 20 20 20 20 B/P 148/98 148/98 134/80 O2 Delivery Room Air Room Air Room Air 07/10/16 07/10/16 07/10/16 07/10/16 17:20 17:30 17:35 17:45 Pulse 122 122 106 105 Resp 20 20 20 18 B/P 129/74 163/100 O2 Delivery Room Air Room Air 07/10/16 07/10/16 07/10/16 07/10/16 17:45 17:52 18:00 18:05 Pulse 108 105 96 96 Resp 20 20 20 20 B/P 158/106 146/97 147/83 O2 Delivery Room Air Room Air Room Air 07/10/16 07/10/16 07/10/16 07/10/16 18:20 18:30 18:35 18:59 Pulse 109 96 96 104 Resp 20 20 20 20 B/P 137/83 148/106 O2 Delivery Room Air Room Air 07/10/16 07/10/16 07/10/16 07/10/16 19:07 19:23 19:40 19:52 Temp 97.1 Pulse 115 105 94 114 B/P 150/93 137/89 144/80 157/87 O2 Delivery Room Air Room Air Room Air Room Air 07/10/16 07/10/16 07/10/16 07/10/16 20:00 20:07 20:22 20:37 Pulse 114 106 106 105 Resp 18 B/P 153/92 143/89 146/91 O2 Delivery Room Air Room Air Room Air 07/10/16 07/10/16 07/10/16 07/10/16 20:52 21:00 21:07 21:09 Temp 96.8 Pulse 99 99 106 106 Resp 18 B/P 133/69 168/11 159/95 O2 Delivery Room Air Room Air Room Air 07/10/16 07/10/16 07/10/16 07/10/16 21:23 21:28 21:38 21:52 Temp 96.9 Pulse 116 102 106 113 B/P 166/111 159/102 141/100 145/100 O2 Delivery Room Air Room Air Room Air Room Air 07/10/16 07/10/16 07/10/16 07/10/16 22:00 22:07 22:23 22:37 Pulse 113 97 90 92 Resp 18 B/P 135/81 135/101 141/90 O2 Delivery Room Air Room Air Room Air 07/10/16 07/10/16 07/10/16 07/10/16 22:53 23:00 23:07 23:22 Temp 97.3 Pulse 83 83 89 86 Resp 18 B/P 136/95 136/94 144/96 O2 Delivery Room Air Room Air Room Air 07/10/16 07/11/16 07/11/16 07/11/16 23:36 00:00 00:00 01:00 Temp 96.9 Pulse 90 91 91 96 Resp 16 16 B/P 141/99 139/98 O2 Delivery Room Air Room Air 07/11/16 07/11/16 07/11/16 07/11/16 01:00 02:00 02:00 03:00 Temp 96.7 96.9 Pulse 96 95 95 98 Resp 18 16 B/P 135/93 140/95 O2 Delivery Room Air Room Air 07/11/16 07/11/16 07/11/16 07/11/16 03:00 04:00 04:00 05:00 Temp 96.7 96.7 Pulse 98 100 100 97 Resp 18 18 B/P 132/90 129/89 O2 Delivery Room Air Room Air 07/11/16 07/11/16 07/11/16 07/11/16 05:00 06:00 06:00 07:00 Temp 96.8 97.3 97.4 Pulse 97 90 90 100 Resp 18 B/P 137/86 134/93 140/98 O2 Delivery Room Air Room Air Room Air 07/11/16 07/11/16 07/11/16 07/11/16 07:00 07:30 08:00 08:30 Temp 97.2 97.3 Pulse 100 97 99 99 Resp 18 B/P 136/93 137/98 134/98 Pulse Ox 95 O2 Delivery Room Air Room Air Room Air 07/11/16 07/11/16 07/11/16 07/11/16 09:00 09:00 09:30 09:58 Temp 97.5 Pulse 92 92 97 Resp 18 20 B/P 128/85 135/94 O2 Delivery Room Air Room Air Room Air 07/11/16 07/11/16 07/11/16 07/11/16 10:00 11:00 11:30 12:00 Temp 95.7 95.9 Pulse 92 103 101 100 Resp 18 20 20 20 B/P 154/101 138/103 136/101 O2 Delivery Room Air Room Air 07/11/16 07/11/16 07/11/16 07/11/16 12:30 13:00 13:30 14:00 Temp 96.7 Pulse 99 99 102 100 Resp 18 18 20 18 B/P 142/102 140/100 161/104 157/110 O2 Delivery Room Air Room Air Room Air Room Air 07/11/16 07/11/16 07/11/16 07/11/16 15:00 15:17 15:30 16:00 Temp 96.5 Pulse 96 106 104 101 Resp 20 20 18 20 B/P 137/90 137/90 133/95 143/108 O2 Delivery Room Air Room Air Room Air 07/11/16 07/11/16 07/11/16 07/11/16 16:10 16:30 16:57 17:30 Temp 97.2 Pulse 106 101 103 Resp 20 20 20 B/P 156/105 137/90 Pulse Ox 100 O2 Delivery Room Air Non Rebreather Non Rebreather O2 Flow Rate 10.00 10.00 07/11/16 07/11/16 07/11/16 07/11/16 18:18 18:59 20:00 20:00 Temp 97.7 Pulse 117 118 102 103 Resp 20 20 18 18 B/P 144/97 138/82 131/88 Pulse Ox 100 100 100 O2 Delivery Non Rebreather Non Rebreather Non Rebreather O2 Flow Rate 10.00 10.00 15.00 07/11/16 07/11/16 07/11/16 07/12/16 21:00 22:00 23:00 00:00 Temp 97.2 Pulse 108 104 102 112 Resp 18 18 18 18 B/P 136/89 141/98 142/97 137/97 Pulse Ox 100 100 100 100 O2 Delivery Non Rebreather Non Rebreather Non Rebreather Non Rebreather O2 Flow Rate 15.00 15.00 15.00 15.00 07/12/16 07/12/16 07/12/16 07/12/16 02:00 02:00 03:00 03:00 Pulse 100 100 109 109 Resp 18 18 18 18 B/P 136/88 142/101 Pulse Ox 100 100 O2 Delivery Non Rebreather Non Rebreather O2 Flow Rate 15.00 10.00 07/12/16 07/12/16 07/12/16 07/12/16 04:00 04:00 05:00 05:00 Pulse 99 99 99 99 Resp 18 18 18 18 B/P 135/86 135/86 Pulse Ox 99 100 O2 Delivery Non Rebreather Non Rebreather O2 Flow Rate 10.00 10.00 07/12/16 07/12/16 07/12/16 07/12/16 06:00 06:00 07:00 07:00 Temp 96.5 Pulse 101 101 107 107 Resp 18 18 18 18 B/P 137/91 132/94 Pulse Ox 100 100 O2 Delivery Non Rebreather Non Rebreather O2 Flow Rate 10.00 10.00 07/12/16 07/12/16 07/12/16 07/12/16 08:00 09:00 10:00 11:00 Pulse 96 106 106 113 Resp 18 18 18 18 B/P 139/87 131/80 124/83 Pulse Ox 100 97 98 97 O2 Delivery Non Rebreather Non Rebreather Non Rebreather Non Rebreather O2 Flow Rate 10.00 10.00 10.00 10.00 07/12/16 07/12/16 07/12/16 07/12/16 12:25 12:35 12:45 15:05 Temp 96.1 Pulse 104 111 108 95 Resp 18 18 18 18 B/P 142/102 140/97 137/100 Pulse Ox 98 98 98 99 O2 Delivery Room Air Room Air Room Air 07/12/16 07/12/16 07/12/16 07/12/16 15:30 15:56 16:00 16:35 Pulse 93 93 93 96 Resp 18 18 18 18 B/P 153/110 158/113 153/110 138/103 Pulse Ox 100 100 100 97 O2 Delivery Room Air Room Air 07/12/16 07/12/16 07/12/16 07/12/16 17:00 18:00 19:00 20:00 Temp 98.9 98.9 Pulse 84 95 93 87 Resp 18 18 18 18 B/P 143/106 135/101 147/107 Pulse Ox 97 96 98 O2 Delivery Room Air Room Air Room Air 07/12/16 07/12/16 07/12/16 07/12/16 20:00 20:15 21:00 21:00 Temp 100.2 Pulse 87 100 100 Resp 18 18 18 B/P 149/106 149/111 Pulse Ox 95 O2 Delivery Room Air Room Air Room Air 07/12/16 07/12/16 07/12/16 07/12/16 22:00 22:00 23:00 23:00 Pulse 89 89 90 90 Resp 18 18 18 18 B/P 150/106 145/103 O2 Delivery Room Air Room Air 07/13/16 07/13/16 07/13/16 07/13/16 00:00 00:00 01:00 01:00 Temp 99.8 Pulse 93 93 89 89 Resp 18 18 18 18 B/P 136/90 140/95 Pulse Ox 94 O2 Delivery Room Air Room Air 07/13/16 07/13/16 07/13/16 07/13/16 02:00 02:00 03:00 03:00 Temp 99.1 Pulse 88 88 90 90 Resp 18 18 18 18 B/P 134/95 134/95 O2 Delivery Room Air Room Air 07/13/16 07/13/16 07/13/16 07/13/16 04:00 04:00 05:00 05:00 Pulse 89 89 86 86 Resp 18 18 18 18 B/P 132/92 137/92 O2 Delivery Room Air Room Air 07/13/16 07/13/16 07/13/16 07/13/16 06:00 06:00 07:00 07:00 Temp 98.9 Pulse 90 90 90 90 Resp 18 18 18 18 B/P 139/95 138/90 Pulse Ox 93 O2 Delivery Room Air Room Air 07/13/16 08:00 Temp 98.6 Pulse 102 Resp 20 B/P 141/103 Pulse Ox 97 O2 Delivery Room Air Intake and Output 07/13/16 00:00 Intake Total 2500 ml Output Total 2194 ml Balance 306 ml Intake Oral 1150 ml IV Total 1350 ml Output Urine Total 2194 ml Incision: c/d/i Laboratory Tests 07/13/16 05:56: Alanine Aminotransferase (ALT/SGPT) 61H, Albumin 2.3L, Alkaline Phosphatase 134 , Anion Gap 8, Aspartate Amino Transf (AST/SGOT) 52H, BUN/Creatinine Ratio 13, Basophils # (Auto) 0.0, Basophils (%) (Auto) 0, Blood Urea Nitrogen 8, Calcium Level 5.8*L, Carbon Dioxide Level 19L, Chloride Level 103, Creatinine 0.61, Eosinophils # (Auto) 0.1, Eosinophils (%) (Auto) 1, Estimat Glomerular Filtration Rate > 60, Glucose Level 92, Hematocrit 29L, Hemoglobin 9.6#L, Lymphocytes # (Auto) 2.1, Lymphocytes (%) (Auto) 18, Mean Corpuscular Hemoglobin 31, Mean Corpuscular Hemoglobin Concent 33, Mean Corpuscular Volume 91, Mean Platelet Volume 10.5H, Monocytes # (Auto) 0.7, Monocytes (%) (Auto) 6, Neutrophils # (Auto) 8.8H, Neutrophils (%) (Auto) 75, Platelet Count 228, Potassium Level 4.0, Red Blood Count 3.14L, Red Cell Distribution Width 14.6H, Sodium Level 130L, Total Bilirubin 0.5, Total Protein 4.6L, White Blood Count 11.7H Microbiology 07/10/16 Group B Streptococcus Culture - Preliminary, Resulted No Group B Strep Diagnosis: PPD 1 PLTCS Preeclampsia S/p MgSO4 infusion- stopped this am Hypokalemia Acute blood loss anemia P: Replace iron Replace Calcium Encourage ambulation Continue Procardia 30 XR ANDRE OLIVER DO Jul 13, 2016 9:22 am
[2016-07-13] MEDS: NIFEdipine ER 30 MG (PROCARDIA XL) TAB PO SCH (10:53)
[2016-07-13] MEDS ORDERED: NIFEdipine ER 30 MG (PROCARDIA XL) TAB PO ONE (16:15)
[2016-07-13] MEDS: FERROUS SULF 325 MG (IRON) TAB PO SCH (18:27)
[2016-07-13] MEDS: IBUPROFEN 600 MG (MOTRIN) TAB PO SCH (20:38)
[2016-07-14 02:05] VITALS: BP 136/84
[2016-07-14] MEDS: IBUPROFEN 600 MG (MOTRIN) TAB PO SCH ×3 (04:10→15:28)
[2016-07-14] MEDS: CATHETER FLUSH 10 ML SYR IV SCH (06:06)
[2016-07-14] MEDS ORDERED: CALCIUM CARBONATE 600 MG (CALCARB) TAB PO SCH (07:00)
[2016-07-14 07:18] LABS: ALANINE AMINOTRANSFERASE 49 U/L (0-55); ALBUMIN 2.4 G/DL (3.2-4.5); ANION GAP 8 MMOL/L (5-14); ASPARTATE AMINO TRANSFERASE 32 U/L (5-34); BILIRUBIN,TOTAL 0.3 MG/DL (0.1-1.0); BLOOD UREA NITROGEN 12 MG/DL (7-18); BUN/CREATININE RATIO 18; CALCIUM 7.6 MG/DL (8.5-10.1); CARBON DIOXIDE 21 MMOL/L (21-32); CHLORIDE 109 MMOL/L (98-107); CREATININE SERUM 0.66 MG/DL (0.60-1.30); GFR ESTIMATED > 60; GLUCOSE 86 MG/DL (70-105); POTASSIUM 4.2 MMOL/L (3.6-5.0); SODIUM 138 MMOL/L (135-145); TOTAL PROTEIN 4.9 G/DL (6.4-8.2)
[2016-07-14 07:35] VITALS: BP 139/76
[2016-07-14] MEDS: DOCUSATE SODIUM 100 MG (COLACE) CAP PO SCH (07:41)
[2016-07-14] MEDS: FERROUS SULF 325 MG (IRON) TAB PO SCH (07:41)
--- NOTE | 2016-07-14 07:43 | Progress Note-Standard ---
Standard Progress Note Progress Notes/Assess & Plan Progress/Assessment & Plan Patient doing well POD 2 PLTCS. She reports no head aches, cp, sob, changes in vision. Feel much better this morning, no concerns voiced. Vital Sign - Last 12Hours 07/14/16 02:05 Temp 97.9 Pulse 88 Resp 18 B/P 136/84 Pulse Ox 97 O2 Delivery Room Air Intake and Output 07/14/16 00:00 Intake Total 1080 ml Output Total 2500 ml Balance -1420 ml Laboratory Tests 07/14/16 05:59: Alanine Aminotransferase (ALT/SGPT) 49, Albumin 2.4L, Alkaline Phosphatase 122, Anion Gap 8, Aspartate Amino Transf (AST/SGOT) 32, BUN/Creatinine Ratio 18, Blood Urea Nitrogen 12, Calcium Level 7.6L, Carbon Dioxide Level 21, Chloride Level 109H, Creatinine 0.66, Estimat Glomerular Filtration Rate > 60, Glucose Level 86, Potassium Level 4.2, Sodium Level 138, Total Bilirubin 0.3, Total Protein 4.9L Diagnosis: PPD 2 PLTCS Preeclampsia Acute blood loss anemia P: Encourage ambulation Continue Procardia increased to 60 XR Anticipate dc if BP remains controlled today. ANDRE OLIVER DO Jul 14, 2016 7:43 am
[2016-07-14] MEDS ORDERED: NIFEdipine ER 60 MG (PROCARDIA XL) TAB PO SCH (10:15)
[2016-07-14 12:20] VITALS: BP 150/97
[2016-07-14 18:15] VITALS: BP 133/92
--- NOTE | 2016-07-25 15:49 | Discharge Summary ---
Diagnosis/Chief Complaint Date of Admission Jul 10, 2016 at 16:09 Date of Discharge Jul 14, 2016 at 18:55 Discharge Date: Jul 14, 2016 Admission Diagnosis Admission Diagnosis Preeclampsia, 34 weeks G1 Discharge Diagnosis Severe preeclampsia G1 34 weeks Failure to progress failure to descend uterine fibroids acute blood loss anemia hypocalemia Reason Hospital Visit Patient was sent from the office on 07/10/16 for induction due to severe preeclampsia. She had been on Procardia since 33 weeks due to elevated blood pressured. Received betamethasone. 24 urine 252 mg protein/24 hour. Her preeclamptic labs had been normal. However, on 07/10 BP was 161/104, 2+ proteinuria. NST showed reactivity but continued irritability. Induction was begun with misoprostol and Magnesium Iv started for seizure prophylaxis. Discharge Summary Hospital Course Hospital Course Patient had misoprostel induction and Magnesium sulfate for sesizure prophylaxis. She had slow progress and worsening blood pressures and worsening status. In addition she had a known uterine fibroid and it was suspected that this was hindering the fetus to drop appropriately. On 07/12/16 after > 36 hours of induction, decision was made to proceed with section. Please see operative note. This was uncomfortable. Following delivery the patient was admitted to the post floor. Pain management was with Toradol and Dilaudid and changed to Motrin and Lortab once diet was started and tolerated. Magnesium sulfate was continued. 24 hours and then discontinued. Diet was advanced. Her am labs showeed dsevere hypocalcemia and this was corrected with calcium gluconate. She had been continued on Procardia. Her blood pressured postoperatively were improved. Post op day 1 hgb was 9.6. Iron was replaced. She had an uncomplicated post operative course and was discharged on pp day/po day #2. Procedures epidural PLTCS Discharge Physical Examination Allergies: Coded Allergies: No Known Drug Allergies (Unverified , 06/28/16) Vitals & I&Os 133/92 98.7 General Appearance: Alert Respiratory: Clear to Auscultation, Normal Air Movement Cardiovascular: Regular Rate, Normal S1, Normal S2, No Murmurs Extremities: Other (2+ edema) Neuro: Reflexes 2+ Discussion & Recommendations see above , discharge to parent room Discharge Home Medications Reviewed and agree with Discharge Medication list on patient's Discharge Instruction sheet Condition at Discharge stable Instructions to Patient/Family Please see electonic discharge instructions given to patient. Clinical Quality Measures DVT/VTE Risk/Contraindication: Risk Factor Score Per Nursin RFS Level Per Nursing on Admit: 1=Low/No VTE PPX HUSSAIN CAAL DO Jul 25, 2016 15:49
== END 2016-07-14 18:55 | disposition home or self-care (01) | DRG 766 ==
LOC: LDRP 16:09
PROVIDERS: ADMIT Obstetrics & Gynecology; ATTEND Obstetrics & Gynecology
PROC: 3E0P7GC Introduction of Other Therapeutic Substance into Female Reproductive, Via Natural or Artificial Opening (ICD-10-PCS; 2016-07-11)
PROC: 10D00Z1 Extraction of Products of Conception, Low, Open Approach (ICD-10-PCS; principal; 2016-07-12 12:50)
DX: O14.94 Unspecified pre-eclampsia, complicating childbirth (principal); O34.13 Maternal care for benign tumor of corpus uteri, third trimester; D25.9 Leiomyoma of uterus, unspecified; O61.0 Failed medical induction of labor; O62.9 Abnormality of forces of labor, unspecified; Z3A.34 34 weeks gestation of pregnancy; Z37.0 Single live birth; O99.285 Endocrine, nutritional and metabolic diseases complicating the puerperium; E87.6 Hypokalemia; O90.81 Anemia of the puerperium; D50.0 Iron deficiency anemia secondary to blood loss (chronic); Z23 Encounter for immunization
CPT/HCPCS: 36415; 80053; 83615; 83735; 84550; 85025; 86850; 86900; 86901; 86920; 87081; 88307; 90715; 94664